=== PATIENT | female | born 1950 | race Caucasian/White ===

== ENCOUNTER 2019-06-18 14:26 | Outpatient (CLI) | payer MEDICARE, MEDICAID, SELFPAY ==
--- NOTE | ~2019-06-18 | MR_ITS ---
EXAMINATION: MR thoracic spine wo con EXAM DATE: 06/18/2019 15:43 INDICATION: Thoracolumbar pain. Right leg numbness. TECHNIQUE: Multi-sequential, multiplanar MR images of the thoracic spine were obtained without contra st. Sagittal T1, T2, T2 fat saturation, axial T2 weighted images reviewed. There is no prior study for comparison. FINDINGS: Treated T12 and L1 compression fractures. There is mild mid and lower thoracic disc disease . Thoracic neural foramina and central canal are widely patent. There are no suspicious marrow signal abnormalities. The spinal cord signal intensity and intrinsic morphology is normal. The vertebral souleymane dies are aligned in the AP dimension. Paraspinal soft tissue is unremarkable. IMPRESSION: Mild thoracic spondylosis. No acute findings. Reviewed, dictated and finalized at location A.
--- NOTE | ~2019-06-18 | MR_ITS ---
EXAMINATION: MR lumbar spine wo con EXAM DATE: 06/18/2019 15:43 INDICATION: Thoracolumbar pain. TECHNIQUE: Multi-sequential, multiplanar MR images of the lumbar spine were obtained without contrast . Sagittal T1, T2, T2 fat saturation images. Axial T2 weighted images. Comparison is made to prior examination from 09/07/2017. FINDINGS: Mild compression fracture at T12, mild to moderate at L1, both treated with vertebroplasty, and appear unchanged compared to prior study. The conus medullaris terminates at the L1/2 level and has normal signal intensity and morphology. The vertebral bodies are aligned in the AP dimension. Mi ld disc disease at all lumbar levels. There are no suspicious marrow signal abnormalities. Paraspinal soft tissue is unremarkable. Level by level evaluation: T12-L1: There is a minimal diffuse disc bulge. Facet arthropathy: None. Neural foraminal stenosis: No stenosis. Central canal stenosis: No stenosis. L1-L2: There is a minimal diffuse disc bulge. Facet arthropathy: Mild. Neural foraminal stenosis: No stenosis. Central canal stenosis: No stenosis. L2-L3: There is a mild diffuse disc bulge. Facet arthropathy: Mild. Neural foraminal stenosis: Mild left. Central canal stenosis: Mild. L3-L4: There is a mild diffuse disc bulge. Facet arthropathy: Mild bilateral. Neural foraminal stenosis: Mild bilateral. Central canal stenosis: Mild. L4-L5: There is a mild to moderate diffuse disc bulge. Facet arthropathy: Mild. Neural foraminal stenosis: Moderate right, mild to moderate left. Central canal stenosis: Mild. L5-S1: Disc does not extend beyond the endplate margin. Facet arthropathy: Mild. Neural foraminal stenosis: No stenosis. Central canal stenosis: No stenosis. IMPRESSION: 1. L4-5 moderate bilateral neural foraminal stenosis. 2. Chronic, treated T12 and L1 compression fractures. 3. No acute findings. Reviewed, dictated and finalized at location A.
== END 2019-06-18 14:27 | disposition home or self-care (01) ==
LOC: ANHIMG 14:38
PROVIDERS: PCP Family Medicine; Visit Provider Nurse Practitioner Family
DX: M54.6 Pain in thoracic spine (principal); M54.16 Radiculopathy, lumbar region; M48.061 Spinal stenosis, lumbar region without neurogenic claudication; M48.54XA Collapsed vertebra, not elsewhere classified, thoracic region, initial encounter for fracture; M47.814 Spondylosis without myelopathy or radiculopathy, thoracic region
CPT/HCPCS: 72146; 72148

== ENCOUNTER 2019-06-25 14:36 | Outpatient (CLI) | payer MEDICARE, MEDICAID, SELFPAY ==
--- NOTE | ~2019-06-25 | MR_ITS ---
EXAMINATION: MR thoracic spine w con DATE: 06/25/2019 16:19 INDICATION: Thoracic back pain. TECHNIQUE: Magnetic resonance imaging (MRI) of the thoracic spine was performed with 14 mL MultiHance intravenous contrast. Sequences included sagittal and axial T2-weighted FSE, axial T1-weighted FSE, and postcontrast sagittal and axial T1-weighted FS FSE. COMPARISON: Thoracic spine MRI 06/18/2019 FINDINGS: There is 8 degrees dextrocurvature of thoracic spine. There is kyphosis of thoracic spine. There are chronic compression fractures of T12 and L1 with 2/5 loss of height and changes of vertebro plasties. There are Schmorl's nodes of the inferior endplates of T6-T9. There is mild chronic anterio r wedging of T3 vertebral body. There is mildly decreased disc height from T4-T5 through T8-T9. At T8 -T9, there is a central extrusion with mild central canal stenosis. There is multilevel mild facet tramaine int osteoarthritis. There is moderate to severe facet joint osteoarthritis on the left from T2-T3 thr ough T4-T5. At T3-T4 and T4-T5, there is mild left neural foraminal stenosis. The spinal cord signal intensity is normal. The conus medullaris is at L1. There is a small sliding hiatal hernia. IMPRESSION: 1. Mild thoracic spondylosis. Reviewed, dictated and finalized at location A.
[2019-06-25 15:29] LABS: Estimated Glomerular Filt Rate 55
== END 2019-06-25 14:37 | disposition home or self-care (01) ==
PROVIDERS: PCP Family Medicine; Visit Provider Nurse Practitioner Family
DX: M47.894 Other spondylosis, thoracic region (principal)
CPT/HCPCS: 36415; 72147; A9577

== ENCOUNTER 2019-11-30 08:51 | Outpatient (CLI) | payer MEDICARE, MEDICAID, SELFPAY ==
--- NOTE | ~2019-11-30 | US_ITS ---
US right upper quadrant INDICATION: Chronic pancreatitis PROCEDURE: Realtime right upper abdominal ultrasound. COMPARISON: 10/26/2016 FINDINGS: The pancreas not well visualized due to overlying bowel gas. Liver echotexture is increase d, consistent with fatty infiltration. There is normal directional flow in the portal vein. Gallbladder is surgically absent. Common bile duct measures 5.5 mm. No sonographic Spear's sign. IMPRESSION: 1: Hepatic steatosis. 2: Gallbladder surgically absent. Reviewed, dictated and finalized at location A.
[2019-11-30 10:31] LABS: Alanine Aminotransferase 17 U/L (4-35); Albumin Level 3.7 g/dL (3.5-5.1); Alkaline Phosphatase 87 U/L (38-126); Aspartate Amino Transferase 25 U/L (14-36); Bilirubin,Total 0.8 mg/dL (0.2-1.3)
== END 2019-11-30 08:52 | disposition home or self-care (01) ==
PROVIDERS: PCP Family Medicine
DX: K86.1 Other chronic pancreatitis (principal)
CPT/HCPCS: 36415; 76705; 80076

== ENCOUNTER → 2020-11-12 18:13 | Outpatient (CLI) | payer MEDICARE, MEDICAID, SELFPAY ==
--- NOTE | ~2020-11-12 | XR_ITS ---
XR lumbar spine 2-3V DATE: 11/12/2020 19:31 INDICATION: Low back pain TECHNIQUE: AP, lateral, swimmer views COMPARISON: 06/18/2019 MRI lumbar spine FINDINGS: Diffuse osteopenia is again noted. Mild dextroscoliosis of the lower thoracic and lumbar spine. Status post vertebroplasty at T12 and L1 compression fractures, stable in appearance since 09/07/2017. Normal alignment lumbar spine. No interval fracture or any apparent bone destruction is noted. The [place] mbar pedicles appear intact. There is mild degenerative disc disease. The sacroiliac joints are intact. Abdominal aortic and iliac arterial calcifications. Pain and popping overlies the anterior right lower abdomen.. IMPRESSION: Diffuse osteopenia Status post vertebroplasty at compression fractures of T12 and L1, stable since 09/07/2017 Reviewed, dictated and finalized at location A.
--- NOTE | ~2020-11-12 | XR_ITS ---
XR sacrum coccyx min 2V DATE: 11/12/2020 19:31 INDICATION: Low back pain TECHNIQUE: AP, angled AP and lateral views COMPARISON: None FINDINGS: Diffuse osteopenia. No sacral or coccygeal fracture or bone destruction is detected. The sacroiliac joints and pubic symp hysis are intact. Pain control device overlying right lower abdomen. IMPRESSION: Osteopenia Reviewed, dictated and finalized at location A. IMPRESSION: Osteopenia
== END ==
PROVIDERS: PCP Family Medicine; Visit Provider Nurse Practitioner Family
DX: M54.5 Low back pain (principal); M85.88 Other specified disorders of bone density and structure, other site
CPT/HCPCS: 72100; 72220

== ENCOUNTER 2021-01-02 14:40 | Outpatient (CLI) | payer MEDICARE, MEDICAID, SELFPAY ==
--- NOTE | ~2021-01-02 | XR_ITS ---
EXAMINATION: XR chest 2V DATE: 01/02/2021 15:36 INDICATION: Other forms of dyspnea. TECHNIQUE: Frontal and lateral views of the chest were obtained. COMPARISON: Chest 2 views 12/13/2018 FINDINGS: The chest demonstrates clear lungs without pneumonia, pleural effusion, or pneumothorax. Th e heart size is normal. There are changes of vertebroplasty at 2 levels. Surgical clips in the right upper quadrant are likely from cholecystectomy. IMPRESSION: 1. No acute cardiopulmonary disease. Reviewed, dictated and finalized at location A.
--- NOTE | 2021-01-03 10:27 | WPDPFTINT ---
PFT Procedure Performed PFT Procedure Performed Plethysmography (Lung Vol) Diffusing Cap (DLCO) Flow Vol Loop Spirometry w/o Bronchodil PFT Interpretation This is a pulmonary function test with spirometry, plethysmography and diffusing capacity. The test was performed and results interpreted in accordance with the 2019 and 2005 ATS/ERS Task Force guidelines respectively using the Global Lung Function Initiative-2012 reference equations. Patient demonstrated good effort and cooperation. Reproducibility criteria were met. The quality of the spirometry maneuver was Grade B. Findings: Spirometry: There is decreased maximal expiratory airflow at low lung volumes with a mildly concave expiratory flow tracing. The FVC is 1.95 L, 76% predicted. The FEV1 is 1.38 L, 69% predicted. The FEV1: FVC ratio 71%. Plethysmography: The total lung capacity is 4.59 L, 97% predicted. The functional residual capacity is 3.10 L, 115% predicted. The residual volume is 2.46 L, 116% predicted. Diffusion capacity: The absolute diffusion capacity is 12.5, 64% predicted. The diffusing capacity corrected for alveolar volume is 3.99, 92% predicted. Impression: There is a moderate obstructive abnormality. The lung volumes are normal. The absolute diffusing capacity is mildly decreased and normalizes when corrected for alveolar volume. There are no prior studies for comparison
== END 2021-01-02 14:41 | disposition home or self-care (01) ==
PROVIDERS: PCP Family Medicine; Visit Provider Family Medicine
DX: R06.09 Other forms of dyspnea (principal); R94.2 Abnormal results of pulmonary function studies
CPT/HCPCS: 71046; 94375; 94726; 94729

== ENCOUNTER → 2021-05-07 02:14 | Outpatient (CLI) | payer MEDICARE, MEDICAID, SELFPAY ==
[2021-05-07 16:52] LABS: SARS-CoV-2 RNA PCR Positive
== END ==
PROVIDERS: PCP Family Medicine; Visit Provider Physician Assistant
DX: U07.1 COVID-19 (principal)
CPT/HCPCS: C9803; U0003; U0005

== ENCOUNTER 2022-01-27 18:32 | Emergency (ER) | payer MEDICARE, MEDICAID, SELFPAY ==
--- NOTE | ~2022-01-27 | XR_ITS ---
EXAMINATION: XR chest 2V Exam Date/Time: 01/27/2022 19:10 CITY ASSESSOR HISTORY: chest discomfort and sob X 1 WK, HX ASTHMA Comparison: 01/02/2021. RESULT: Lines, tubes, and devices: Multilevel vertebroplasty cement. Cholecystectomy clips. Lungs and pleura: Clear. Cardiomediastinal silhouette: Stable. Other: No acute osseous or upper abdominal finding. IMPRESSION: No acute cardiopulmonary process. Reviewed, dictated and finalized at location K. ASSESSOR
--- NOTE | 2022-01-27 18:35 | ECG_ITS ---
Measurements Intervals [place] Rate: 85 P: 50 IN: 170 QRS: 26 QRSD: 89 T: 44 QT: 345 QTc: 411 Interpretive Statements SINUS RHYTHM NORMAL ECG COMPARED TO ECG 12/13/2018 12:20:01 NO SIGNIFICANT CHANGES Electronically Signed On 01-28-2022 11:55:25 PHARMACY SALES ASSISTANT by Jose Wade D.O.
[2022-01-27 19:06] LABS: Basophils Percent Auto 0.3 % (0.2-1.2); Eosinophils Absolute Auto 0.1 K/mm3 (0-0.3); Eosinophils Percent Auto 1.9 % (0-4.4); Hematocrit 41.8 % (37.0-47.0); Hemoglobin 14.1 g/dL (12.0-15.0); Immature Granulocyte Absolute 0.02 K/mm3 (0.00-0.031); Immature Granulocyte Percent A 0.3 % (0-0.5); Lymphocytes Absolute Auto 1.07 K/mm3 (0.9-3.2); Lymphocytes Percent Auto 17.2 % (18.3-44.2); Mean Corpuscular HGB Conc 33.7 g/dl (32-36); Mean Corpuscular Hemoglobin 30.7 pg (26-34); Mean Corpuscular Volume 90.9 fl (80-100); Mean Platelet Volume 12.1 fl (7.4-10.4); Monocytes Absolute Auto 0.8 K/mm3 (0.1-0.6); Monocytes Percent Auto 12.7 % (2.6-8.5); Neutrophils Absolute Auto 4.2 K/mm3 (1.3-6.7); Neutrophils Percent Auto 67.6 % (45.5-73.1); Platelet Count Result 176 k/mm3 (150-375); Red Cell Distribution Width 13.7 % (11.5-14.5); White Blood Count 6.2 K/mm3 (4.5-10.0)
[2022-01-27 19:18] LABS: Alanine Aminotransferase 37 U/L (6-35); Alkaline Phosphatase 54 U/L (38-126); Anion Gap 10 mmol/L (8-16); Aspartate Amino Transferase 29 U/L (14-36); Bilirubin,Total 0.9 mg/dL (0.2-1.3); Blood Urea Nitrogen 11 mg/dL (7-17); Calcium 8.5 mg/dL (8.4-10.2); Carbon Dioxide 24 mmol/L (22-30); Chloride 103 mmol/L (98-107); Estimated Glomerular Filt Rate > 60; Glucose 100 mg/dL (65-110); Potassium 3.1 mmol/L (3.4-5.0); Sodium 137 mmol/L (137-145)
[2022-01-27 20:35] VITALS: BP 146/74; PULSE 69; RESP 14; TEMP 37.1; O2SAT 100
[2022-01-27 21:22] LABS: Influenza A QL RT-PCR Positive (Negative); Influenza B QL RT-PCR Negative (Negative); SARS-CoV-2 RNA PCR Negative
[2022-01-27 22:40] VITALS: O2SAT 96
--- NOTE | 2022-01-27 23:38 | ED.SOB ---
HPI - SOB/Dyspnea General Chief Complaint: Shortness of Breath/Dyspnea Stated Complaint: non-productive cough, fever, shortness of breath Time Seen by Provider: 01/27/22 22:49 History of Present Illness HPI Narrative: 71-year-old female presented emergency department for evaluation of cough and congestive symptoms over the last few days. Patient states he did have a flu shot approximately 3 weeks ago. Patient does have a history of asthma and does have an albuterol inhaler at home. Patient has not been using this as of recently. Patient does report worsening generalized fatigue and cough. Patient denies any chest pain or shortness of breath. History of high cholesterol, hypothyroidism, chronic pancreatitis Related Data Home Medications Medication Instructions Recorded Confirmed morphine 50 mg/50 mL (1 mg/mL) in 1 mg IV Q1-2H PRN 04/08/20 07/06/21 0.9 % sod.chlor IV pump reservoir gabapentin 600 mg tablet 600 mg PO TID 05/16/20 07/06/21 Allergies Allergy/AdvReac Type Severity Reaction Status Date / Time amoxicillin Allergy Unknown Unknown Verified 01/27/22 18:33 Penicillins Allergy Unknown Unknown Verified 01/27/22 18:33 AMOXICILLIN TRIHYDRATE Allergy Mild Nausea and Uncoded 01/27/22 18:33 Vomiting POTASSIUM CLAVULANATE Allergy Mild Nausea and Uncoded 01/27/22 18:33 Vomiting Review of Systems Review of Systems: CONSTITUTIONAL: Denies fever, chills, or sweats. EYES: Denies visual changes, redness, or discharge. ENT: Denies rhinorrhea, congestion, sore throat, or otalgia. CARDIOVASCULAR: Denies chest pain, palpitations, or edema. RESPIRATORY: See HPI GASTROINTESTINAL: Denies abdominal pain, nausea, vomiting, or diarrhea. GENITOURINARY: Denies dysuria or hematuria. SKIN: Denies rash or itching. MUSCULOSKELETAL: Denies back pain, joint pain, or myalgia. NEUROLOGIC: Denies headache, numbness, or weakness. [facility] Past Medical History Medical History (Updated 01/27/22 @ 23:41 by Vincent Scott MD) Allergic rhinitis Anxiety Chronic constipation Chronic low back pain Chronic pancreatitis Chronic renal insufficiency, stage III (moderate) Deficiency of other specified B group vitamins Hypothyroidism, unspecified Major depressive disorder, single episode, unspecified Mixed hyperlipidemia Overweight (BMI 25.0-29.9) Prediabetes Urinary incontinence Vitamin B12 deficiency Vitamin D deficiency Surgical History Surgical History H/O sinus surgery H/O: hysterectomy Hx of cataract surgery Family History Family History Other Diabetes mellitus Family history of arthritis Social History Social History Smoking packs per day: 1.5 Smoking cigarettes per day: 30.0 Years smoked: 30 Smoking pack-years: 45.00 Smoking status: Former smoker Second hand tobacco smoke exposure: No Smoking end date: 03/21/10 Alcohol intake: former Substance use: never Substance use type: does not use Gender identity (if verbalized by the patient): Female Exam Narrative: APPEARANCE: Well appearing, no pain, no distress, well-nourished. HEAD: normocephalic, atraumatic. EYES: PERRLA/EOMI, conjunctivae clear. NOSE: Normal no drainage EARS:TMS clear with good light reflex. THROAT: Pharynx clear, no exudate. NECK: Supple. No adenopathy, no masses. RESPIRATORY: Airway patent, respirations nonlabored. Clear to auscultation bilaterally, no rales, rhonchi, wheezing. CARDIOVASCULAR: Regular rate and rhythm without murmurs rubs or gallops. ABDOMINAL: Soft, nontender, nondistended, normal bowel sounds MUSCULOSKELETAL: Moves all extremities. Strength/ROM intact, No edema, No calf tenderness. NEURO: Alert. Cranial nerves II through XII intact. Grossly intact SKIN: Warm, dry. Normal Color Course Course Emergency Course: Patient did test posi
== END 2022-01-28 00:01 | disposition home or self-care (01) ==
PROVIDERS: Emergency Medicine; Emergency Provider Emergency Medicine; PCP Family Medicine
DX: J10.1 Influenza due to other identified influenza virus with other respiratory manifestations (principal); Z20.822 Contact with and (suspected) exposure to COVID-19; E03.9 Hypothyroidism, unspecified; K86.1 Other chronic pancreatitis; N18.30 Chronic kidney disease, stage 3 unspecified; E78.2 Mixed hyperlipidemia; R73.03 Prediabetes; E55.9 Vitamin D deficiency, unspecified; E53.8 Deficiency of other specified B group vitamins; Z98.49 Cataract extraction status, unspecified eye; Z90.710 Acquired absence of both cervix and uterus; Z87.891 Personal history of nicotine dependence
CPT/HCPCS: 36415; 71046; 80053; 85025; 87636; 93005; 99283

== ENCOUNTER 2022-08-17 07:45 | Outpatient (CLI) | payer MEDICARE, MEDICAID, SELFPAY ==
--- NOTE | ~2022-08-17 | DEXA_ITS ---
Bone Density Report Name: LARS MARISCAL Age: 72 Sex: Female Ethnicity: White Date of : 1950 Indication: postmenopausal osteoporosis; height loss; prior fracture; asthma or emphysema; hysterectomy; Referring Provider: SANJIV, JOHAN Valles Study: Bone densitometry was performed. Exam Date: August 17, 2022 Accession number: [id number] Bone Density: Region BMD T-score Z-score Classification AP Spine(L2, L3, L4) 0.851 -2.1 0.4 Osteopenia Femoral Neck (Left) 0.609 -2.2 -0.1 Osteopenia Total Hip (Left) 0.612 -2.7 -1.0 Osteoporosis Femoral Neck (Right) 0.599 -2.3 -0.2 Osteopenia Total Hip (Right) 0.609 -2.7 -1.0 Osteoporosis Total Hip Mean 0.610 -2.7 -1.0 Osteoporosis World Health Organization criteria for BMD impression classify patients as: Normal (T-score at or above -1.0), Osteopenia (T-score between -1.0 and -2.5), or Osteoporosis (T-score at or below -2.5). 10-year Fracture Risk: FRAX not reported because: Some T-score for Spine Total or Hip Total or Femoral Neck at or below -2.5 Prior hip or vertebral fracture Previous Exams: Region Exam Age BMD T-score BMD Change BMD Change Date g/cm2 vs Baseline vs Previous AP Spine (L2-L4) 08/17/2022 72 0.851 -2.1 0.087 (11.4%)* 0.087 (11.4%)* 10/03/2014 64 0.764 -2.9 Total Hip(Left) 08/17/2022 72 0.612 -2.7 -0.170 (-21.7% -0.105 (-14.6% 10/03/2014 64 0.716 -1.9 -0.065 (-8.3%) -0.065 (-8.3%) 02/23/2012 61 0.781 -1.3 Total Hip(Right) 08/17/2022 72 0.609 -2.7 -0.145 (-19.3% -0.071 (-10.4% 10/03/2014 64 0.679 -2.2 -0.074 (-9.9%) -0.074 (-9.9%) 02/23/2012 61 0.754 -1.5 *Denotes significance at 95% confidence level, LSC for AP Spine = 0.022 g/cm2, LSC for Total Hip = 0.027 g/cm2 # Denotes dissimilar scan types or analysis methods Clinical Information Provided by Patient: Have had a previous hip or vertebral fracture Has had a low trauma fracture Has used the following medications: Reclast (i.e. zoledronate), Vitamin D, Calcium Has the following medical conditions: Asthma or Emphysema, Hysterectomy Patient maximum height was 63.5 Menopause Age: 43 No regular weight bearing exercise Drinks caffeinated beverages Onset of menses at age 11 Number of children 2 Impression: The patient has established osteoporosis, based on the Left Total Hip T-score and the existence of a prior fracture. The patient has risk factors, including: previous fracture. The BMD for the To
== END 2022-08-17 07:46 | disposition home or self-care (01) ==
LOC: ANHIMG 07:46
PROVIDERS: PCP Family Medicine; Visit Provider Nurse Practitioner Family
DX: M81.0 Age-related osteoporosis without current pathological fracture (principal); E55.9 Vitamin D deficiency, unspecified; M85.88 Other specified disorders of bone density and structure, other site; M85.852 Other specified disorders of bone density and structure, left thigh; M85.851 Other specified disorders of bone density and structure, right thigh
CPT/HCPCS: 77080

== ENCOUNTER 2022-09-14 16:50 | Inpatient (IN) | payer MEDICARE, MEDICAID, SELFPAY ==
[2022-09-14] VITALS (12 sets, daily range): BP systolic 81–130; BP diastolic 45–81; PULSE 60–110; RESP 13–25; TEMP 36.8; O2SAT 94–100
--- NOTE | ~2022-09-14 | CT_ITS ---
EXAMINATION: CT abdomen pelvis w con DATE: 09/14/2022 19:02 INDICATION: lower abdominal pain TECHNIQUE: Computed tomography (CT) of the abdomen and pelvis was performed with 100 mL Omnipaque-350 intravenous contrast. Automated exposure control and iterative reconstruction technique were employe d. The dose-length product was 262.47 mGy-cm. COMPARISON: 06/11/2015. FINDINGS: Lower thorax: Coronary artery calcification. Minimal bibasilar scar/atelectasis Liver: Normal. Biliary/Gallbladder: Gallbladder is absent. No bile duct dilation. Stable pneumobilia. Pancreas: Pancreatic atrophy. Moderate peripancreatic inflammatory change at the pancreatic tail. No surrounding fluid or mass. Spleen: Normal. Adrenals:No mass. Kidneys: Simple left lower pole cyst. No suspicious mass, stone, or hydronephrosis. GI tract: Small hiatal hernia/Torsten fundoplication. Prior Whipple procedure. Moderate distal esophag eal and gastric wall edema No small or large bowel dilation. Normal appendix. Diverticulosis without diverticulitis. Mesentery/Peritoneum: No ascites, mass, or free air. Retroperitoneum: No mass. Atherosclerotic abdominal aortic and/or arterial calcifications. Pelvis: Surgically absent uterus. Mildly distended urinary bladder with wall thickening/inflammation. Soft Tissues: Soft tissues and body wall unremarkable. Right lower quadrant pain pump, catheter enter s the spinal canal at L2-3, tip not included in the [id number]. Bones: No acute osseous finding. New vertebroplasty cement at T12 and L1. IMPRESSION: Moderate esophagitis/gastritis. Moderate peripancreatic inflammatory change, may represent acute pancreatitis in the appropriate clin ical and laboratory context. Urinary bladder wall thickening may be secondary to inadequate distention or cystitis. Reviewed, dictated and finalized at location K. IMPRESSION: Moderate esophagitis/gastritis. Moderate peripancreatic inflammatory change, may represent acute pancreatitis i n the appropriate clinical and laboratory context. Urinary bladder wall thickening may be secondary to inadequate distention or cy stitis.
--- NOTE | ~2022-09-14 | XR_ITS ---
EXAMINATION: XR chest 1V portable Exam Date/Time: 09/14/2022 18:40 CDT HISTORY: decreased lung sounds R upper lung Comparison: 01/27/2022. RESULT: Lines, tubes, and devices: Multilevel vertebroplasty cement.. Lungs and pleura: Clear. Cardiomediastinal silhouette: Stable. Other: No acute osseous or upper abdominal finding. IMPRESSION: No acute cardiopulmonary process. Reviewed, dictated and finalized at location K.
[2022-09-14 17:24] LABS: Basophils Percent Auto 0.3 % (0.2-1.2); Eosinophils Percent Auto 0.2 % (0-4.4); Hematocrit 44.2 % (37.0-47.0); Hemoglobin 15.1 g/dL (12.0-15.0); Immature Granulocyte Absolute 0.06 K/mm3 (0.00-0.031); Immature Granulocyte Percent A 0.4 % (0-0.5); Lymphocytes Percent Auto 1.9 % (18.3-44.2); Mean Corpuscular HGB Conc 34.2 g/dl (32-36); Mean Corpuscular Volume 90.8 fl (80-100); Mean Platelet Volume 12.6 fl (7.4-10.4); Monocytes Absolute Auto 0.1 K/mm3 (0.1-0.6); Monocytes Percent Auto 0.9 % (2.6-8.5); Neutrophils Absolute Auto 14.9 K/mm3 (1.3-6.7); Neutrophils Percent Auto 96.3 % (45.5-73.1); Platelet Count Result 189 k/mm3 (150-375); Red Blood Count 4.87 M/mm3 (4.2-5.4); Red Cell Distribution Width 13.4 % (11.5-14.5); White Blood Count 15.5 K/mm3 (4.5-10.0)
[2022-09-14 17:33] LABS: Alanine Aminotransferase 17 U/L (6-35); Alkaline Phosphatase 62 U/L (38-126); Anion Gap 10 mmol/L (8-16); Aspartate Amino Transferase 19 U/L (14-36); Bilirubin,Total 3.1 mg/dL (0.2-1.3); Blood Urea Nitrogen 14 mg/dL (7-17); Calcium 8.9 mg/dL (8.4-10.2); Carbon Dioxide 20 mmol/L (22-30); Chloride 105 mmol/L (98-107); Estimated CRCL calculation 41 ml/min; Estimated Glomerular Filt Rate > 60; Glucose 98 mg/dL (65-110); Lipase 158 U/L (23-300); Potassium 3.8 mmol/L (3.4-5.0); Sodium 135 mmol/L (137-145)
[2022-09-14 17:55] LABS: Burr Cells 2+ (NORMAL); Ovalocytes 1+ (NORMAL); Platelet Estimate Adequate (Adequate); Schistocytes None Seen (NORMAL)
--- NOTE | 2022-09-14 18:55 | ED.ABDPAIN ---
HPI - Abdominal Pain General Chief Complaint: Abdominal Pain <Cici Sosa PA-C - Last Filed: 09/15/22 03:46> Stated Complaint: abd pain, back pain and leg pain <Cici Sosa PA-C - Last Filed: 09/15/22 03:46> Time Seen by Provider: 09/14/22 18:27 <Cici Sosa PA-C - Last Filed: 09/15/22 03:46> History of Present Illness HPI narrative: 72-year-old female with a history of chronic pancreatitis, hyperlipidemia, hypothyroidism, MDD, elevated liver enzymes, chronic renal insufficiency stage III, chronic back pain on a morphine/clonidine/bupivacaine pump in her right lower abdominal quadrant reports for evaluation of intermittent lower abdominal cramping since yesterday. Patient reports the pain has been so bad that it causes her to shake. States the pain radiates down the lateral aspects of her thighs. She states she is unsure if her morphine pump is not working due to the amount of pain. Her daughter is present and states this is the pain similar to what she experienced prior to the morphine pump placed approximately 2 years ago, however the abdominal cramping is new in onset. Her last bowel movement was this morning and normal. She denies obstipation but does report decreased flatulence. Her abdominal surgeries include a cholecystectomy 5 to 6 years ago, Whipple surgery 10 years ago, hysterectomy and hiatal hernia repair many years ago . She denies fever, chest pain or shortness of breath, nausea or vomiting, diarrhea, melena, urinary complaints. She denies numbness or weakness of her lower extremities, sensory deficit, difficulty ambulating, saddle anesthesia. No melena or hematochezia. <Cici Sosa PA-C - Last Filed: 09/15/22 03:46> Related Data Home Medications: Home Medications Medication Instructions Recorded Confirmed fluticasone 250 mcg-salmeterol 50 1 inh inhalation BID PRN Allergy 09/15/22 09/15/22 mcg/dose blistr powdr for Symptoms inhalation (Advair Diskus) linaclotide 145 mcg capsule 145 mcg PO DAILY 09/15/22 09/15/22 (Linzess) omeprazole 40 mg capsule,delayed 40 mg PO DAILY 09/15/22 09/15/22 release oxybutynin chloride 10 mg 10 mg PO HS 09/15/22 09/15/22 tablet,extended release 24 hr <Cici Sosa PA-C - Last Filed: 09/15/22 03:46> Allergies/Adverse Reactions: Allergies Allergy/AdvReac Type Severity Reaction Status Date / Time amoxicillin Allergy Unknown Unknown Verified 09/14/22 19:21 Penicillins Allergy Unknown Unknown Verified 09/14/22 19:21 clavulanic acid AdvReac Fever Verified 09/14/22 19:21 [From Augmentin] AMOXICILLIN TRIHYDRATE Allergy Mild Nausea and Uncoded 01/27/22 18:33 Vomiting POTASSIUM CLAVULANATE Allergy Mild Nausea and Uncoded 01/27/22 18:33 Vomiting <Cici Sosa PA-C - Last Filed: 09/15/22 03:46> Review of Systems Review of Systems: CONSTITUTIONAL: Denies fever, chills EYES: Denies visual changes, redness, or discharge. ENT: Denies rhinorrhea, congestion, sore throat, or otalgia. CARDIOVASCULAR: Denies chest pain, palpitations, or edema. RESPIRATORY: Denies cough or dyspnea. GASTROINTESTINAL: See HPI GENITOURINARY: Denies dysuria or hematuria. SKIN: Denies rash or itching. MUSCULOSKELETAL: See HPI NEUROLOGIC: Denies headache, numbness, dizziness, or weakness. PSYCHIATRIC: Denies anxiety or depression. <Cici Sosa PA-C - Last Filed: 09/15/22 03:46> [facility] Past Medical History Medical History: Medical History Allergic rhinitis Anxiety Chronic constipation Chronic low back pain Chronic pancreatitis Chronic renal insufficiency, stage III (moderate) Deficiency of other specified B group vitamins Hypothyroidism, unspecified Major depressive disorder, single episode, unspecified Mixed hyperlipidemia Overweight (BMI 25.0-29.9) Prediabetes Urinary incontinence Vitamin B12 deficiency Vitamin D deficiency <Luci
[2022-09-14] MEDS: SODIUM CHLORIDE 0.9% IV 1,000 ML 999 ML IV CONT ×3 (19:10→22:27)
--- NOTE | 2022-09-14 19:30 | PC.NURSE ---
This RN assumed care of patient.
[2022-09-14 19:42] LABS: Appearance Urine Clear (Clear); Bacteria Urine None Seen /hpf; Bilirubin Urine Negative (Negative); Blood Urine 2+ (Negative); Color Urine Yellow (Yellow); Glucose Urine UA Negative (Negative); Ketones Urine 1+ mg/dL (Negative); Leukocyte Esterase Ur 2+ LEU/UL (Negative); Need Manual Microscopic Reviewed; Nitrate Urine Negative (Negative); Non Pathogenic Casts 0-2; Protein Urine Trace mg/dL (Negative); RBC Urine 21-50 /hpf (0-2); Specific Grav Ur 1.062 (1.001-1.035); Squamous Epithelial Cell Urine None seen /hpf (Few); WBC Urine 51-100 /hpf; pH Urine 6.5 (5.0-9.0)
[2022-09-14 19:43] LABS: Add Urine Microscopic? YES
[2022-09-14] MEDS: ACETAMINOPHEN 500 MG TABLET 1000 MG PO (20:16)
[2022-09-14] MEDS: MORPHINE SULFATE (*CRX) 2 MG/ML INJ IV PUSH (20:17)
[2022-09-14] MEDS: PHENAZOPYRIDINE HCL 100 MG TABLET 200 MG PO (22:25)
[2022-09-14 23:24] LABS: Lactic Acid Reflex 0.8 mmol/L (0.7-2.0)
[2022-09-15] VITALS (9 sets, daily range): BP systolic 102–148; BP diastolic 52–98; PULSE 58–103; RESP 15–20; TEMP 36.4–38.5; O2SAT 98–100; BMI 22.1
[2022-09-15] MEDS: SODIUM CHLORIDE 0.9% IV 1,000 ML 125 ML IV CONT ×3 (01:12→19:50)
--- NOTE | 2022-09-15 04:30 | ADMGEN ---
This patient, Sonya Vázquez, was admitted to IMU Room 209-01. Patient/family oriented to hospital policies and general routines including ID bracelet, bed and alarms, visiting hours, pain management, procedures, bathroom and other care routines, personal items, smoking policy, room service/diet, and visiting hours. Information on how to activate the Rapid Response Team has been discussed. Patient/Family are encouraged to report perceived risks to care and to ask questions if they do not understand what they are told or what they should do.
[2022-09-15] MEDS: MORPHINE SULFATE (*CRX) 2 MG/ML INJ IV PUSH (08:22)
--- NOTE | 2022-09-15 14:07 | PM.IMHP ---
H&P: HPI History of Present Illness Date/Time: 09/15/22 14:07 Chief Complaint: 72-year-old female with a history of chronic pancreatitis, hyperlipidemia, hypothyroidism, MDD, elevated liver enzymes, chronic renal insufficiency stage III, chronic back pain on a morphine/clonidine/bupivacaine pump in her right lower abdominal quadrant reports for evaluation of intermittent lower abdominal cramping since yesterday.? Patient reports the pain has been so bad that it causes her to shake.? States the pain radiates down the lateral aspects of her thighs.? She states she is unsure if her morphine pump is not working due to the amount of pain.? Her daughter is present and states this is the pain similar to what she experienced prior to the morphine pump placed approximately 2 years ago, however the abdominal cramping is new in onset.? Her last bowel movement was this morning and normal.? She denies obstipation but does report decreased flatulence.? Her abdominal surgeries include a cholecystectomy 5 to 6 years ago, Whipple surgery 10 years ago, hysterectomy and hiatal hernia repair many years ago .? She denies fever, chest pain or shortness of breath, nausea or vomiting, diarrhea, melena, urinary complaints.? She denies numbness or weakness of her lower extremities, sensory deficit, difficulty ambulating, saddle anesthesia. No melena or hematochezia. [facility] Past Medical History Medical History Allergic rhinitis Anxiety Chronic constipation Chronic low back pain Chronic pancreatitis Chronic renal insufficiency, stage III (moderate) Deficiency of other specified B group vitamins Hypothyroidism, unspecified Major depressive disorder, single episode, unspecified Mixed hyperlipidemia Overweight (BMI 25.0-29.9) Prediabetes Urinary incontinence Vitamin B12 deficiency Vitamin D deficiency Surgical History Surgical History H/O sinus surgery H/O: hysterectomy Hx of cataract surgery Family History Family History Other Diabetes mellitus Family history of arthritis Social History Social History Smoking packs per day: 1.5 Smoking cigarettes per day: 30.0 Years smoked: 30 Smoking pack-years: 45.00 Smoking status: Former smoker Second hand tobacco smoke exposure: No Smoking end date: 03/21/10 Alcohol intake: never Substance use: never Substance use type: does not use Lack of Transportation: No Lack of Food: Never True Current Housing: I Have Housing Concerned About Future Housing: No Difficulty Paying Gas/Electric Bills: No Difficulty Paying for Meds: No Currently Unemployed: No Education: Decline to Answer Difficulty w/ Childcare or Family Care: No Living arrangements: alone Occupation/Education: retired Gender identity (if verbalized by the patient): Female Spiritual care concerns: No Agree to blood products: Yes Meds Home Medications and Allergies Home Medications Medication Instructions Recorded Confirmed Type albuterol sulfate 90 mcg/actuation 1 inh inhalation QID PRN shortness 08/04/22 09/15/22 Rx aerosol inhaler of breath or wheezing #6.7 grams levothyroxine 75 mcg tablet 75 mcg PO DAILY #90 tabs 08/04/22 09/15/22 Rx trazodone 150 mg tablet 150 mg PO QHS #90 tabs 08/06/22 09/15/22 Rx fluticasone 250 mcg-salmeterol 50 1 inh inhalation BID PRN Allergy 09/15/22 09/15/22 History mcg/dose blistr powdr for Symptoms inhalation (Advair Diskus) linaclotide 145 mcg capsule 145 mcg PO DAILY 09/15/22 09/15/22 History (Linzess) omeprazole 40 mg capsule,delayed 40 mg PO DAILY 09/15/22 09/15/22 History release oxybutynin chloride 10 mg 10 mg PO HS 09/15/22 09/15/22 History tablet,extended release 24 hr Allergies Allergy/AdvReac Type Severity React
[2022-09-15] MEDS: ACETAMINOPHEN 325 MG TABLET 650 MG PO (15:20)
--- NOTE | 2022-09-15 16:22 | PC.NURSE ---
This patient, Sonya Vázquez, was transferred to [facility] on 09/15/22 at 1622. Personal belongings sent with patient. Report given to TASNEEM Sarmiento. Appropriate documentation sent with patient.
[2022-09-15] MEDS: traZODone HCL 50 MG TABLET 150 MG PO (20:12)
[2022-09-15] MEDS: PANTOPRAZOLE 40 MG TABLET PO (20:12)
[2022-09-15] MEDS: oxyBUTYnin CHLORIDE XL 5 MG TAB.ER.24 10 MG PO (20:12)
[2022-09-16] MEDS: LEVOTHYROXINE SODIUM 75 MCG TABLET PO (05:48)
[2022-09-16] MEDS: SODIUM CHLORIDE 0.9% IV 1,000 ML 125 ML IV CONT (06:01)
[2022-09-16 06:26] VITALS: BP 108/61; PULSE 65; RESP 18; TEMP 36.6; O2SAT 98
[2022-09-16 06:46] LABS: Anion Gap 6 mmol/L (8-16); Blood Urea Nitrogen 9 mg/dL (7-17); Calcium 6.9 mg/dL (8.4-10.2); Carbon Dioxide 16 mmol/L (22-30); Chloride 110 mmol/L (98-107); Estimated CRCL calculation 53 ml/min; Estimated Glomerular Filt Rate > 60; Glucose 94 mg/dL (65-110); Potassium 3.2 mmol/L (3.4-5.0); Sodium 132 mmol/L (137-145)
[2022-09-16 06:57] LABS: Basophils Percent Auto 0.3 % (0.2-1.2); Eosinophils Percent Auto 0.2 % (0-4.4); Hematocrit 35.4 % (37.0-47.0); Hemoglobin 11.5 g/dL (12.0-15.0); Immature Granulocyte Absolute 0.04 K/mm3 (0.00-0.031); Immature Granulocyte Percent A 0.6 % (0-0.5); Lymphocytes Absolute Auto 0.38 K/mm3 (0.9-3.2); Lymphocytes Percent Auto 5.8 % (18.3-44.2); Mean Corpuscular HGB Conc 32.5 g/dl (32-36); Mean Corpuscular Hemoglobin 30.5 pg (26-34); Mean Corpuscular Volume 93.9 fl (80-100); Mean Platelet Volume 13.4 fl (7.4-10.4); Monocytes Absolute Auto 0.6 K/mm3 (0.1-0.6); Monocytes Percent Auto 8.8 % (2.6-8.5); Neutrophils Absolute Auto 5.5 K/mm3 (1.3-6.7); Neutrophils Percent Auto 84.3 % (45.5-73.1); Platelet Count Result 97 k/mm3 (150-375); Red Blood Count 3.77 M/mm3 (4.2-5.4); Red Cell Distribution Width 13.6 % (11.5-14.5); White Blood Count 6.6 K/mm3 (4.5-10.0)
[2022-09-16 08:07] VITALS: PULSE 56; O2SAT 98
[2022-09-16] MEDS: PANTOPRAZOLE 40 MG TABLET PO (08:14)
--- NOTE | 2022-09-16 13:37 | PM.DS ---
DS: Admitting Diagnosis Discharge Date 09/16/22 Admitting Diagnosis UTI, Sepsis DS: Discharge Diagnosis Discharge Diagnosis (1) UTI (urinary tract infection): Qualifiers: Hematuria presence: with hematuria Urinary tract infection type: acute cystitis Qualified Code(s): N30.01 - Acute cystitis with hematuria Code(s): N39.0 - Urinary tract infection, site not specified Status: Acute Assessment and Plan: abx sepsis poa, now improved await cx (2) Chronic pancreatitis: Qualifiers: Pancreatitis type: unspecified pancreatitis type Qualified Code(s): K86.1 - Other chronic pancreatitis Code(s): K86.1 - Other chronic pancreatitis Status: Acute Assessment and Plan: monitor hx of (3) Mixed hyperlipidemia: Code(s): E78.2 - Mixed hyperlipidemia Status: Acute (4) GERD (gastroesophageal reflux disease): Code(s): K21.9 - Gastro-esophageal reflux disease without esophagitis Status: Acute Assessment and Plan: ppi DS: Summary Hospital Course Hospital Course: admitted for uti and sepsis, responded to albino murphy on cefdinir Patient doing well , no complaints today Time Spent with Patient Time attestation: Total time spent providing and/or coordinating discharge services: Exam Narrative: GENERAL: Well-appearing, in no acute distress. HEAD: Normocephalic EYES: PERRLA ENT: Nares clear. Mucous membranes moist. Oropharynx without tonsillar hypertrophy exudate or other lesions. NECK: Supple. CHEST: No respiratory distress. Clear to auscultation, no adventitious breath sounds. HEART: Regular rate and rhythm. No murmur heard. Normal peripheral pulses. ABDOMEN: Normal active bowel sounds. Abdomen soft with tenderness in the lower quadrants without guarding, rebound or rigidity. Pain pump placed in right lower quadrant without overlying skin changes. No CVA tenderness bilaterally. BACK: No midline cervical spinous tenderness, step-offs or deformities. EXTREMITIES: Normal range of motion. No edema. BLE strength 5/5. Sensation intact. No saddle anesthesia. Full ROM of hips w/o pain or overlying skin changes. SKIN: Warm, dry, no rash. NEURO: No focal deficits. Alert and oriented x3. PSYCH: Normal mood and affect. DS: Data Data Completed and Pending Labs on day of discharge: Labs from last 24 hours 09/16/22 06:12 WBC 6.6 RBC 3.77 L Hgb 11.5 L D Hct 35.4 L MCV 93.9 MCH 30.5 MCHC 32.5 RDW 13.6 Plt Count 97 L MPV 13.4 H Immature Gran % (Auto) 0.6 H Neut % (Auto) 84.3 H Lymph % (Auto) 5.8 L Izard % (Auto) 8.8 H Eos % (Auto) 0.2 Baso % (Auto) 0.3 Lymph # (Auto) 0.38 L Izard # (Auto) 0.6 Eos # (Auto) 0.0 Baso # (Auto) 0.0 Abs Immat Gran (auto) 0.04 H Absolute Neuts (auto) 5.5 Absolute Nucleated RBC 0.0 Nucleated RBC % 0.0 % Immature Plt Fraction 12.0 H Sodium 132 L Potassium 3.2 L Chloride 110 H Carbon Dioxide 16 L Anion Gap 6 L BUN 9 D Creatinine 0.60 L Estim Creat Clear Calc 53 Estimated GFR > 60 Glucose 94 Calcium 6.9 L Preliminary micro results at discharge 09/14/22 23:00 Blood Culture - Preliminary Blood 09/14/22 23:00 Blood Culture - Preliminary Blood Discharge Plan Discharge Attending physician on discharge: Oliverio Morris Consulting providers: Cici Sosa Discharging Clinician: Oliverio Morris Patient Disposition: Home, Self-Care Activity: as tolerated Diet: as tolerated Patient Instructions: Antibiotic Form Stand Alone Forms: General Discharge Information Follow-up/Referrals: Anya Morales MD [Primary Care Provider] - 2 Weeks (Follow up at Dr. Morales's office on 09/28/22 at 11:45 am.) Discharge Medications: New cefdinir 300 mg capsule 300 mg PO Q12H Qty: 14 0RF Continued Linzess 145 mcg capsule 145 mcg PO DAILY omeprazole 40 mg capsule,delayed release(DR/EC) 40 mg PO DAILY flutic
[2022-09-16 13:59] VITALS: BP 135/70
== END 2022-09-16 14:20 | disposition home or self-care (01) | DRG 690 ==
LOC: ANHED 18:52 → ANHIMU 09-15 03:46 → ANH3MEDSUR 09-16 07:46 → ANHIMU 09-17 12:32
PROVIDERS: Emergency Medicine; Admitting Provider Internal Medicine; Emergency Provider Physician Assistant; PCP Family Medicine; Visit Provider Chiropractor
DX: N30.01 Acute cystitis with hematuria (principal); K86.1 Other chronic pancreatitis; E03.9 Hypothyroidism, unspecified; G89.29 Other chronic pain; M54.9 Dorsalgia, unspecified; N18.30 Chronic kidney disease, stage 3 unspecified; E53.8 Deficiency of other specified B group vitamins; E55.9 Vitamin D deficiency, unspecified; E78.2 Mixed hyperlipidemia; R73.03 Prediabetes; Z90.710 Acquired absence of both cervix and uterus; Z98.49 Cataract extraction status, unspecified eye; Z87.891 Personal history of nicotine dependence; Z97.8 Presence of other specified devices; Z90.49 Acquired absence of other specified parts of digestive tract; Z88.0 Allergy status to penicillin
CPT/HCPCS: 36415; 71045; 74177; 80048; 80053; 81001; 83605; 83690; 85025; 85055; 87040; 87077; 87086; 87186; 96361; 96365; 96375; 99285; A9270; C1751; J0696; J2270; J7030; Q9967

== ENCOUNTER 2023-01-06 14:52 | Outpatient (CLI) | payer MEDICARE, MEDICAID, SELFPAY ==
[2023-01-06 16:38] LABS: Basophils Percent Auto 0.6 % (0.2-1.2); Eosinophils Percent Auto 0.4 % (0-4.4); Hematocrit 45.3 % (37.0-47.0); Hemoglobin 14.7 g/dL (12.0-15.0); Immature Granulocyte Absolute 0.02 K/mm3 (0.00-0.031); Immature Granulocyte Percent A 0.3 % (0-0.5); Lymphocytes Absolute Auto 1.07 K/mm3 (0.9-3.2); Lymphocytes Percent Auto 14.9 % (18.3-44.2); Mean Corpuscular HGB Conc 32.5 g/dl (32-36); Mean Corpuscular Hemoglobin 30.2 pg (26-34); Mean Corpuscular Volume 93.2 fl (80-100); Mean Platelet Volume 13.2 fl (7.4-10.4); Monocytes Absolute Auto 0.4 K/mm3 (0.1-0.6); Monocytes Percent Auto 5.7 % (2.6-8.5); Neutrophils Absolute Auto 5.6 K/mm3 (1.3-6.7); Neutrophils Percent Auto 78.1 % (45.5-73.1); Platelet Count Result 229 k/mm3 (150-375); Red Blood Count 4.86 M/mm3 (4.2-5.4); Red Cell Distribution Width 13.8 % (11.5-14.5); White Blood Count 7.2 K/mm3 (4.5-10.0)
[2023-01-06 17:46] LABS: Alanine Aminotransferase 16 U/L (6-35); Albumin Level 4.1 g/dL (3.5-5.1); Alkaline Phosphatase 72 U/L (38-126); Anion Gap 6 mmol/L (8-16); Aspartate Amino Transferase 21 U/L (14-36); Bilirubin,Total 1.1 mg/dL (0.2-1.3); Blood Urea Nitrogen 14 mg/dL (7-17); Carbon Dioxide 24 mmol/L (22-30); Chloride 103 mmol/L (98-107); Cholesterol 187 mg/dL (0-200); Estimated Glomerular Filt Rate > 60; Glucose 115 mg/dL (65-110); HDL Direct 61 mg/dL; Potassium 4.1 mmol/L (3.4-5.0); Sodium 133 mmol/L (137-145); Triglycerides 72 mg/dL (<150)
[2023-01-06 17:58] LABS: LDL Cholesterol Direct 103 mg/dL; Vitamin D 25 Hydroxy 36.6 ng/mL
[2023-01-07 04:52] LABS: Hemoglobin A1C 6.2 % (<5.7)
== END 2023-01-06 14:53 | disposition home or self-care (01) ==
LOC: ANHLAB 14:54
PROVIDERS: PCP Family Medicine; Visit Provider Family Medicine
DX: R73.9 Hyperglycemia, unspecified (principal); E78.2 Mixed hyperlipidemia; N18.30 Chronic kidney disease, stage 3 unspecified; E03.9 Hypothyroidism, unspecified; E55.9 Vitamin D deficiency, unspecified; R53.83 Other fatigue; E53.8 Deficiency of other specified B group vitamins
CPT/HCPCS: 36415; 80053; 80061; 82306; 82607; 83036; 84443; 85025; 85055